=== PATIENT | female | born 1975 | race Caucasian/White ===

== ENCOUNTER 2016-11-04 19:57 | Emergency (ER) | payer MEDICAID ==
[~2016-11-04] VITALS: Ht 172.7 cm; Wt 81.9 kg
[~2016-11-04 19:57] MED LIST: ALBU18HF INH; BECL8.7A6 INH; LITH450T PO; METH750T87 PO; OXYC30TA PO; SERT50TA5 PO
[2016-11-04 20:09] VITALS: BP 101/68
== END 2016-11-04 22:13 | disposition home or self-care (01) ==
LOC: ED 22:00
DX: M25.561 Pain in right knee (principal); J45.909 Unspecified asthma, uncomplicated; X58.XXXA Exposure to other specified factors, initial encounter; Y93.89 Activity, other specified; Y99.8 Other external cause status; Y92.89 Other specified places as the place of occurrence of the external cause
CPT/HCPCS: 29505

== ENCOUNTER 2016-12-03 02:52 | Emergency (ER) | payer MEDICAID ==
[~2016-12-03] VITALS: Ht 172.7 cm; Wt 82.6 kg
[2016-12-03 02:53] VITALS: BP 127/87
== END 2016-12-03 06:57 | disposition home or self-care (01) ==
LOC: ED 04:54
DX: S02.2XXA Fracture of nasal bones, initial encounter for closed fracture (principal); S80.02XA Contusion of left knee, initial encounter; S00.511A Abrasion of lip, initial encounter; J45.909 Unspecified asthma, uncomplicated; W01.0XXA Fall on same level from slipping, tripping and stumbling without subsequent striking against object, initial encounter; Y93.89 Activity, other specified; Y99.8 Other external cause status; Y92.89 Other specified places as the place of occurrence of the external cause
CPT/HCPCS: 70100; 70160; 99284

== ENCOUNTER 2017-03-03 02:05 | Emergency (ER) | payer MEDICAID ==
[~2017-03-03] VITALS: Ht 172.7 cm; Wt 84.4 kg
[2017-03-03 02:08] VITALS: BP 131/70
== END 2017-03-03 02:57 | disposition home or self-care (01) ==
LOC: ED 02:45
DX: K02.9 Dental caries, unspecified (principal)
CPT/HCPCS: 99283

== ENCOUNTER 2017-12-20 08:47 | Emergency (ER) | payer MEDICAID ==
[~2017-12-20] VITALS: Ht 172.7 cm; Wt 77.0 kg
[2017-12-20 08:49] VITALS: BP 122/80
== END 2017-12-20 09:08 | disposition left against medical advice (07) ==
LOC: ED 09:00
DX: F41.9 Anxiety disorder, unspecified (principal); Z53.21 Procedure and treatment not carried out due to patient leaving prior to being seen by health care provider

== ENCOUNTER 2019-11-01 19:28 | Emergency (ER) | payer MEDICAID ==
[~2019-11-01] VITALS: Ht 172.7 cm; Wt 74.0 kg
[~2019-11-01 19:28] MED LIST changes: -OXYC30TA PO; +OXYC30TA3 PO; +SERT50TA28 PO; -SERT50TA5 PO
[2019-11-01] MEDS ORDERED: ACETAMINOPHEN 325 MG TABLET ONE (20:19)
[2019-11-01] MEDS ORDERED: IBUPROFEN 600 MG TABLET ONE (20:19)
[2019-11-01 20:29] VITALS: BP 125/85
--- NOTE | 2019-11-01 20:30 | NUR ---
PT MEDICATED PER MAR
[2019-11-01] MEDS ORDERED: ACETAMINOPHEN 325 MG TABLET PO ONE (21:00)
[2019-11-01] MEDS ORDERED: IBUPROFEN 600 MG TABLET PO ONE (21:00)
== END 2019-11-01 21:43 | disposition home or self-care (01) ==
LOC: ED 21:10
DX: J02.9 Acute pharyngitis, unspecified (principal); Z20.828 Contact with and (suspected) exposure to other viral communicable diseases; J45.909 Unspecified asthma, uncomplicated; F17.200 Nicotine dependence, unspecified, uncomplicated; Z90.49 Acquired absence of other specified parts of digestive tract
CPT/HCPCS: 36415; 87081; 87635; 87880; 99283

== ENCOUNTER 2020-03-26 17:11 | Emergency (ER) | payer SELFPAY ==
[~2020-03-26] VITALS: Ht 172.7 cm; Wt 73.8 kg
[2020-03-26] MEDS ORDERED: LIDOCAINE-MPF 1%, 5ML INFIL ONE (18:30)
[2020-03-26] MEDS ORDERED: DIPH,PERTUSS(ACELL),TET VAC/PF 0.5 ML IM-VACC ONE ×2 (18:30→20:34)
--- NOTE | 2020-03-26 20:39 | NUR ---
PATIENT GIVEN TDAP IN TRIAGE. TOLERATED WELL. PATIENT VERBALIZED UNDERSTANDING OF POSSIBLE COMPLICATIONS. PATIENT ABLE TO VERBALIZE ADDITIONAL FOLLOW UP CARE AND PLAN OF CARE. PATIENT PLACED BACK IN LOBBY.
--- NOTE | 2020-03-26 21:19 | NUR ---
SPOKE WITH PATIENT; PATIENT DENIES ANY COMPLICATIONS R/T TDAP INJECTION AT THIS TIME. PATIENT VERBALIZED UNDERSTANDING OF PLAN OF CARE.
--- NOTE | 2020-03-26 21:52 | NUR ---
PT TO ROOM FROM LOBBY
[2020-03-26] MEDS ORDERED: NEOSPORIN OINT. PKT 1 PACKET ONE (22:01)
[2020-03-26] MEDS ORDERED: CEPHALEXIN 500 MG CAPSULE ONE (22:28)
[2020-03-26] MEDS ORDERED: SULFAMETH./TRIMETHOPRIM DS 800MG/160MG TABLET ONE (22:28)
[2020-03-26] MEDS ORDERED: CEPHALEXIN 500 MG CAPSULE PO ONE (22:30)
[2020-03-26] MEDS ORDERED: SULFAMETH./TRIMETHOPRIM DS 800MG/160MG TABLET PO ONE (22:30)
[2020-03-26 22:39] VITALS: BP 122/78
== END 2020-03-26 23:06 | disposition home or self-care (01) ==
LOC: ED 21:00
DX: S61.402A Unspecified open wound of left hand, initial encounter (principal); L03.114 Cellulitis of left upper limb; G89.29 Other chronic pain; J45.909 Unspecified asthma, uncomplicated; W57.XXXA Bitten or stung by nonvenomous insect and other nonvenomous arthropods, initial encounter; Y93.89 Activity, other specified; Y92.89 Other specified places as the place of occurrence of the external cause; Y99.8 Other external cause status
CPT/HCPCS: 90471; 90715; 99283